=== PATIENT | female | born 1980 | race Hispanic/Latino ===

== ENCOUNTER 2021-07-20 10:56 | Emergency (ER) | payer MEDICAID, OTHER ==
[2021-07-21 15:08] LABS: SARS-CoV-2 PCR by NAA Not Detected (NotDetected)
== END 2021-07-20 13:28 | disposition home or self-care (01) ==
LOC: CSHERS 10:56
DX: O09.522 Supervision of elderly multigravida, second trimester (principal); O99.512 Diseases of the respiratory system complicating pregnancy, second trimester; J22 Unspecified acute lower respiratory infection; Z20.822 Contact with and (suspected) exposure to COVID-19; J45.901 Unspecified asthma with (acute) exacerbation; Z3A.14 14 weeks gestation of pregnancy
CPT/HCPCS: 99284; U0003; U0005

== ENCOUNTER 2021-08-13 16:00 | Emergency (ER) | payer OTHER ==
[2021-08-13] MEDS ORDERED: Metoclopramide HCl 10 MG TAB ONE (17:51)
[2021-08-13] MEDS ORDERED: Dexamethasone 10 MG/ML VIAL ONE (17:51)
[2021-08-13] MEDS ORDERED: Acetaminophen 500 MG TAB ONE (17:52)
[2021-08-14 15:20] LABS: SARS-CoV-2 PCR by NAA DETECTED (NotDetected)
== END 2021-08-13 18:24 | disposition home or self-care (01) ==
LOC: CSHERS 16:00
DX: O98.512 Other viral diseases complicating pregnancy, second trimester (principal); U07.1 COVID-19; O09.522 Supervision of elderly multigravida, second trimester; Z3A.17 17 weeks gestation of pregnancy
CPT/HCPCS: 99284; J1100; U0003; U0005

== ENCOUNTER 2021-09-18 23:15 | Day surgery (SDC) | payer OTHER ==
[2021-09-19 01:27] LABS: #Eosinphils 0.2 10x3/uL (0.0-0.5); #Monocytes 0.6 10x3/uL (0.0-1.1); #Neutrophils 4.5 10x3/uL (1.5-8.4); %Basophils 0.4 % (0.0-2.0); %Eosinophils 2.7 % (0.0-6.0); %Lymphocytes 31.9 % (18.0-47.0); %Monocytes 7.3 % (0.0-10.0); %Neutrophils 57.2 % (40.0-75.0); Hemoglobin 12.2 g/dL (12.0-15.5); Mean Corpuscular HGB CONC 33.9 g/dL (32.0-36.0); Mean Corpuscular Hemoglobin 29.5 pg (27.0-33.0); Mean Corpuscular Volume 87.2 fl (81.6-98.3); Mean Platelet Volume 9.8 fl (7.4-10.4); Platelet Count 217 10x3/uL (150-450); RBC Distribution Width 13.4 % (11.5-14.5); Red Blood Cell (RBC) Count 4.13 10x6/uL (3.90-5.03); White Blood Cell (WBC) Count 7.8 10x3/uL (3.5-10.5)
[2021-09-19] MEDS ORDERED: Acetaminophen 500 MG TAB ONE (01:27)
[2021-09-19 03:39] VITALS: BMI 40.9
== END 2021-09-19 06:50 | disposition home or self-care (01) ==
LOC: CSHERS 23:15 → CSHLD/OP 09-19 02:30
PROVIDERS: ATTEND Obstetrics & Gynecology
DX: O99.891 Other specified diseases and conditions complicating pregnancy (principal); R10.30 Lower abdominal pain, unspecified; O09.522 Supervision of elderly multigravida, second trimester; O34.219 Maternal care for unspecified type scar from previous cesarean delivery; Z3A.22 22 weeks gestation of pregnancy; V43.53XA Car driver injured in collision with pick-up truck in traffic accident, initial encounter
CPT/HCPCS: 36415; 85025; 85460; 86900; 86901; 99282; 99285

== ENCOUNTER 2021-09-29 11:19 | Emergency (ER) | payer OTHER ==
[2021-09-29] MEDS ORDERED: Ondansetron PF 4 MG/2 ML Vial ONE (12:18)
[2021-09-29 12:26] LABS: #Eosinphils 0.1 10x3/uL (0.0-0.5); #Monocytes 0.5 10x3/uL (0.0-1.1); %Basophils 0.4 % (0.0-2.0); %Eosinophils 1.2 % (0.0-6.0); %Lymphocytes 14.4 % (18.0-47.0); %Monocytes 6.6 % (0.0-10.0); %Neutrophils 77.1 % (40.0-75.0); Hemoglobin 13.2 g/dL (12.0-15.5); Mean Corpuscular HGB CONC 32.8 g/dL (32.0-36.0); Mean Corpuscular Hemoglobin 29.1 pg (27.0-33.0); Platelet Count 202 10x3/uL (150-450); RBC Distribution Width 13.8 % (11.5-14.5); Red Blood Cell (RBC) Count 4.53 10x6/uL (3.90-5.03); White Blood Cell (WBC) Count 7.7 10x3/uL (3.5-10.5)
[2021-09-29 12:40] LABS: ALT (SGPT) 12 U/L (8-55); AST (SGOT) 20 U/L (5-34); Albumin 3.4 g/dL (3.5-5.0); Alkaline Phosphatase 65 U/L (40-110); Anion Gap 17 mmol/L (10-20); BUN (Urea Nitrogen) 4 mg/dL (7.0-18.7); Bilirubin, Total 0.5 mg/dL (0.2-1.2); Calc. Creatinine Clearance 0 mL/min (70-130); Calcium 8.6 mg/dL (7.8-10.44); Carbon Dioxide 19 mmol/L (22-29); Chloride 104 mmol/L (98-107); Globulin 3.1 g/dL (2.4-3.5); Glucose 96 mg/dL (70-105); Magnesium 1.6 mg/dL (1.6-2.6); Potassium 3.6 mmol/L (3.5-5.1); Protein, Total 6.5 g/dL (6.0-8.3); Sodium 136 mmol/L (136-145)
== END 2021-09-29 14:25 | disposition home or self-care (01) ==
LOC: CSHERS 11:19
DX: O99.612 Diseases of the digestive system complicating pregnancy, second trimester (principal); K52.9 Noninfective gastroenteritis and colitis, unspecified; O21.9 Vomiting of pregnancy, unspecified; O99.512 Diseases of the respiratory system complicating pregnancy, second trimester; J45.909 Unspecified asthma, uncomplicated
CPT/HCPCS: 36415; 80053; 83735; 85025; 87804; 96374; J2405

== ENCOUNTER 2022-01-13 06:03 | Inpatient (IN) | payer OTHER ==
[2022-01-11 12:31] LABS: Hemoglobin 12.5 g/dL (12.0-15.5); Mean Corpuscular Hemoglobin 29.5 pg (27.0-33.0); Mean Corpuscular Volume 89.4 fl (81.6-98.3); Mean Platelet Volume 10.6 fl (7.4-10.4); Platelet Count 174 10x3/uL (150-450); RBC Distribution Width 13.4 % (11.5-14.5); Red Blood Cell (RBC) Count 4.24 10x6/uL (3.90-5.03); White Blood Cell (WBC) Count 6.7 10x3/uL (3.5-10.5)
[2022-01-13] MEDS ORDERED: Promethazine HCl 25 MG/ML VIAL IM PRN ×3 (06:14→10:29)
[2022-01-13] MEDS ORDERED: Lactated Ringer's 1,000 ML IV SCH (06:14)
[2022-01-13] MEDS ORDERED: Famotidine/PF 20 mg/2ml Vial SLOW IVP PRN (06:14)
[2022-01-13] MEDS ORDERED: Bicitra 30 ML UDCUP PO PRN (06:14)
[2022-01-13] MEDS ORDERED: Ondansetron PF 4 MG/2 ML Vial IVP PRN ×2 (06:14→10:29)
[2022-01-13] MEDS ORDERED: hydrALAZINE 20 MG/ML VIAL SLOW IVP PRN ×2 (06:14→10:29)
[2022-01-13] MEDS ORDERED: CEFAZOLIN 2 GM in Sodium Chloride 0.9% 100 ML IVPB SCH (06:30)
[2022-01-13] MEDS ORDERED: Dexamethasone 4 mg/ml Vial ONE (07:00)
[2022-01-13] MEDS ORDERED: Ketorolac Tromethamine 30 MG/ML VIAL ONE (07:00)
[2022-01-13] MEDS ORDERED: PHENYLEPHRINE-NS 100 MCG/ML 10 ML SYRINGE ONE (07:00)
[2022-01-13] MEDS ORDERED: Ondansetron PF 4 MG/2 ML Vial ONE (07:00)
[2022-01-13] MEDS ORDERED: Phenylephrine 40 MG/NS 250 ML 250 ML ONE (07:01)
[2022-01-13] MEDS ORDERED: Oxytocin 10 UNITS/ML VIAL ONE (07:01)
[2022-01-13] MEDS ORDERED: Morphine PF 10 MG/10 ML VIAL ONE (07:13)
[2022-01-13] MEDS ORDERED: ePHEDrine Sulfate 50 MG/10 ML VIAL ONE (07:24)
[2022-01-13 07:41] LABS: Syphilis Antibody Nonreactive (Nonreactive); Syphilis Antibody Index 0.02 S/CO (<1.00 Non-Reactive)
[2022-01-13 07:43] LABS: Hep B Surf Ag Non-Reactive S/CO (NonReactive)
[2022-01-13] MEDS ORDERED: Meperidine HCl/PF 25 MG/ML VIAL SLOW IVP PRN (09:14)
[2022-01-13] MEDS ORDERED: Promethazine HCl 25 MG SUPP PR PRN (09:14)
[2022-01-13] MEDS ORDERED: Ondansetron HCl/PF 4 MG/2 ML Vial IVP PRN (09:14)
[2022-01-13] MEDS ORDERED: Ketorolac Tromethamine 30 MG/ML VIAL IVP PRN (09:14)
[2022-01-13] MEDS ORDERED: Naloxone HCl 0.4 mg/ml Vial IVP PRN ×2 (09:14)
[2022-01-13] MEDS ORDERED: diphenhydrAMINE 50 MG/ML VIAL IVP PRN (09:14)
[2022-01-13] MEDS ORDERED: Fentanyl 100 MCG/2 ML VIAL SLOW IVP PRN (09:14)
[2022-01-13] MEDS ORDERED: Moisturizing Cream (Eucerin) 113 GM JAR TOP PRN (09:14)
[2022-01-13] MEDS ORDERED: Naloxone HCl 0.4 mg/ml Vial IV PRN (09:14)
[2022-01-13] MEDS ORDERED: L&D-Morphine 4 MG/ML VIAL SLOW IVP PRN (09:14)
[2022-01-13] MEDS ORDERED: Communication Order-Pharmacy FS SCH (09:15)
[2022-01-13] MEDS ORDERED: Ketorolac Tromethamine 30 MG/ML VIAL IVP SCH (09:15)
[2022-01-13 10:05] VITALS: BMI 41.1
[2022-01-13] MEDS ORDERED: NS w/ Oxytocin 30 units 500 ML ONE (10:26)
[2022-01-13] MEDS ORDERED: NS w/ Oxytocin 30 units 500 ML IV SCH (10:29)
[2022-01-13] MEDS ORDERED: Boostrix 0.5 ML (Tdap) VIAL IM ONE (10:29)
[2022-01-13] MEDS ORDERED: Lanolin Ointment 7 GM TUBE TOP PRN (10:29)
[2022-01-13] MEDS ORDERED: Methylergonovine 0.2 MG/ML VIAL IM PRN (10:29)
[2022-01-13] MEDS ORDERED: Simethicone Chewable 80 MG TAB PO PRN (10:29)
[2022-01-13] MEDS ORDERED: diphenhydrAMINE 25 MG CAP PO PRN (10:29)
[2022-01-13] MEDS ORDERED: Bisacodyl 10 MG SUPP PR PRN (10:29)
[2022-01-13 11:00] LABS: HBSAg Index 0.19 S/CO (0-0.99)
[2022-01-13] MEDS: Ondansetron PF 4 MG/2 ML Vial IVP PRN (14:00)
[2022-01-13] MEDS ORDERED: Metoclopramide HCl 10 MG/2 ML VIAL IVP PRN (17:10)
[2022-01-13] MEDS ORDERED: HYDROcodone/Acetaminophen 5/325 mg Tablet PO PRN (21:15)
[2022-01-14] MEDS: Ondansetron PF 4 MG/2 ML Vial IVP PRN (02:28)
[2022-01-14 05:06] LABS: Hemoglobin 10.1 g/dL (12.0-15.5); Mean Corpuscular HGB CONC 34.4 g/dL (32.0-36.0); Mean Corpuscular Hemoglobin 29.9 pg (27.0-33.0); Mean Platelet Volume 10.3 fl (7.4-10.4); Platelet Count 143 10x3/uL (150-450); RBC Distribution Width 13.4 % (11.5-14.5); Red Blood Cell (RBC) Count 3.38 10x6/uL (3.90-5.03); White Blood Cell (WBC) Count 9.4 10x3/uL (3.5-10.5)
[2022-01-14] MEDS: Prenatal Vitamin 1 TAB PO SCH (08:37)
[2022-01-14] MEDS: HYDROcodone/Acetaminophen 5/325 mg Tablet PO PRN ×3 (08:37→21:16)
[2022-01-14] MEDS: Docusate 100 MG CAP PO SCH ×3 (08:37→21:14)
[2022-01-14] MEDS: Ferrous Sulfate 325 MG TAB PO SCH ×2 (08:40→21:20)
[2022-01-14] MEDS: Ibuprofen 800 MG TAB PO SCH ×2 (14:40→21:14)
[2022-01-15] MEDS: HYDROcodone/Acetaminophen 5/325 mg Tablet PO PRN ×2 (01:09→09:47)
[2022-01-15] MEDS: Ibuprofen 800 MG TAB PO SCH ×2 (05:13→15:04)
[2022-01-15 07:59] VITALS: BP 104/58; TEMP 97.9
[2022-01-15] MEDS: Ferrous Sulfate 325 MG TAB PO SCH (09:23)
[2022-01-15] MEDS: Docusate 100 MG CAP PO SCH (09:47)
[2022-01-15] MEDS: Prenatal Vitamin 1 TAB PO SCH (09:48)
== END 2022-01-15 17:45 | disposition home or self-care (01) | DRG 788 ==
LOC: CSHLD 06:03 → CSHPP 11:05
PROVIDERS: ADMIT Obstetrics & Gynecology; ATTEND Obstetrics & Gynecology
PROC: 10D00Z1 Extraction of Products of Conception, Low, Open Approach (ICD-10-PCS; principal; 2022-01-13)
DX: O34.211 Maternal care for low transverse scar from previous cesarean delivery (principal); Z37.0 Single live birth; Z3A.39 39 weeks gestation of pregnancy; O32.8XX0 Maternal care for other malpresentation of fetus, not applicable or unspecified; K66.0 Peritoneal adhesions (postprocedural) (postinfection); O99.52 Diseases of the respiratory system complicating childbirth; Z20.822 Contact with and (suspected) exposure to COVID-19
CPT/HCPCS: 36415; 51702; 85027; 86780; 86850; 86900; 86901; 87340; J0690; J1100; J1885; J2274; J2405; J2590; J2765; J3490; J7120; S0028; U0003; U0005